=== PATIENT | female | born 1970 | race Caucasian/White ===

== ENCOUNTER 2024-10-27 08:30 | Inpatient (IN) | payer OTHER ==
[~2024-10-27] VITALS: Ht 157.5 cm; Wt 58.1 kg
[2024-10-27 08:32] VITALS: BP 108/71
[2024-10-27 08:34] VITALS: BP 110/72
[2024-10-27] MEDS ORDERED: ZETIA10 MG PO (09:12)
[2024-10-27] MEDS ORDERED: CHILDREN'S ASPI81 MG PO (09:12)
[2024-10-27] MEDS ORDERED: TRICOR145 MG PO (09:12)
[2024-10-27] MEDS ORDERED: LOSARTAN-HCTZ1 EACH PO (09:12)
[2024-10-27] MEDS ORDERED: AMBIEN10 MG PO (09:13)
[2024-10-27] MEDS ORDERED: MOBIC7.5 MG PO (09:13)
[2024-10-27] MEDS ORDERED: HORIZANT300 MG PO (09:13)
[2024-11-02] MEDS ORDERED: CEFTRIAXONE SODIUM 2,000 MG VIAL ONE (10:16)
[2024-11-02] MEDS ORDERED: METRONIDAZOLE/SODIUM CHLORIDE 500 MG/100 ML PIGGYBACK IV ONE (10:17)
[2024-11-02] MEDS ORDERED: DIBUCAINE 30 GM TUBE ONE (11:05)
[2024-11-02] MEDS ORDERED: LIDOCAINE HCL 1%/EPINEPHRINE 20ML VIAL IJ ONE (11:05)
[2024-11-02] MEDS ORDERED: POVIDONE-IODINE 118 ML BOTT TOP ONE (11:05)
[2024-11-02] MEDS ORDERED: HEMOSTATIC MATRIX 1 KIT KIT TOP ONE (11:05)
[2024-11-02] MEDS ORDERED: MORPHINE SULFATE 4 MG/ML VIAL IV ONE (13:55)
[2024-11-02] MEDS ORDERED: ENALAPRILAT DIHYDRATE 1.25 MG/ML VIAL IV PRN (14:00)
[2024-11-02] MEDS ORDERED: ONDANSETRON HCL 2 MG/ML VIAL ONE (14:01)
[2024-11-02] MEDS ORDERED: OxyCODONE HCL 5 MG TABLET (ROXICODONE) PO PRN (14:30)
[2024-11-02] MEDS ORDERED: RINGERS SOLUTION,LACTATED 1,000 ML IV SCH (14:30)
[2024-11-02] MEDS ORDERED: ONDANSETRON HCL 2 MG/ML VIAL IV PRN (14:30)
[2024-11-02] MEDS ORDERED: MORPHINE SULFATE 4 MG/ML CARTRIDGE IV PRN (14:30)
[2024-11-02 14:46] LABS: HEMATOCRIT 33.9 % (36.0-45.00); HEMOGLOBIN 11.2 g/dL (12.0-15.00); MEAN CORPUSCULAR HEMOGLOBIN 29.2 pg (27.00-32.0); MEAN CORPUSCULAR HGB CONC 33.2 g/dl (32.0-36.0); PLATELET COUNT 281 K/uL (150-450); RED BLOOD COUNT 3.85 M/uL (4.00-6.00); RED CELL DISTRIBUTION WIDTH 14.5 % (11.5-14.5)
[2024-11-02] MEDS ORDERED: HYOSCYAMINE SULFATE 0.125 MG TAB.SUBL SL SCH (17:00)
[2024-11-02] MEDS ORDERED: METOCLOPRAMIDE HCL 5 MG/ML VIAL IV SCH (17:00)
[2024-11-02] MEDS ORDERED: GABAPENTIN 300 MG CAPSULE PO SCH (17:00)
[2024-11-02] MEDS ORDERED: POLYETHYLENE GLYCOL 3350 17 GM BLIST.PACK PO SCH (17:00)
[2024-11-02 17:46] VITALS: BP 108/71; O2SAT 99
[2024-11-02] MEDS ORDERED: ACETAMINOPHEN 500 MG GEL..CAP PO SCH (20:00)
[2024-11-02] MEDS ORDERED: FAMOTIDINE/PF 20 MG/2 ML VIAL IV PUSH SCH (21:00)
[2024-11-02] MEDS ORDERED: CELECOXIB 200 MG CAPSULE PO SCH (21:00)
[2024-11-03] VITALS: BP 92/55; O2SAT 97
[2024-11-03 06:55] LABS: HEMATOCRIT 31.9 % (36.0-45.00); HEMOGLOBIN 10.8 g/dL (12.0-15.00); MEAN CELL VOLUME 88.5 fL (80.00-100.00); MEAN CORPUSCULAR HEMOGLOBIN 30.1 pg (27.00-32.0); PLATELET COUNT 255 K/uL (150-450); RED CELL DISTRIBUTION WIDTH 14.6 % (11.5-14.5)
[2024-11-03 07:36] LABS: ALBUMIN 3.1 gm/dL (3.4-5.0); CALCIUM 10.1 mg/dL (8.5-10.1); CREATININE SERUM 0.58 mg/dL (0.55-1.02); GFR 108.33; MAGNESIUM 1.6 mg/dL (1.8-2.4); POTASSIUM 3.74 mEq/L (3.5-5.1)
[2024-11-03] MEDS ORDERED: LACTOBACILLUS ACIDOPHILUS 1 CAP CAP PO SCH (09:00)
[2024-11-03] MEDS ORDERED: LOSARTAN/HYDROCHLOROTHIAZIDE 1 UDTAB TABLET PO SCH (09:00)
[2024-11-03 13:00] VITALS: BP 121/58
[2024-11-03 13:56] VITALS: BP 92/52; O2SAT 99
[2024-11-03] MEDS ORDERED: INTESTINEX680 M1 PO (15:07)
[2024-11-03] MEDS ORDERED: NEURONTIN300 MG PO (15:07)
[2024-11-03] MEDS ORDERED: CELECOXIB200 MG PO (15:07)
[2024-11-03] MEDS ORDERED: CLARITIN10 MG PO (15:08)
[2024-11-03] MEDS ORDERED: HYDROCORTISONE SODIUM SUCC/PF 100 MG VIAL IM NR (16:00)
[2024-11-03 16:09] VITALS: BP 127/61; O2SAT 99
[2024-11-03] MEDS ORDERED: ENOXAPARIN SODIUM 40 MG/0.4 ML SYRINGE SUBCUTANEO SCH (17:00)
[2024-11-04] MEDS ORDERED: ENOXAPARIN SODIUM 40 MG/0.4 ML SYRINGE SUBCUTANEO SCH (09:00)
== END 2024-11-03 19:00 | disposition home or self-care (01) | DRG 748 ==
LOC: SURH 11-02 07:00 → O/R 11-02 07:57 → SURH 11-02 11:32
PROVIDERS: ADMIT Surgery; ATTEND Surgery
PROC: 3E0T3BZ Introduction of Anesthetic Agent into Peripheral Nerves and Plexi, Percutaneous Approach (ICD-10-PCS; 2024-11-02)
PROC: 0JQC0ZZ Repair Pelvic Region Subcutaneous Tissue and Fascia, Open Approach (ICD-10-PCS; principal; 2024-11-02 07:00)
DX: N81.6 Rectocele (principal); K59.01 Slow transit constipation; K59.02 Outlet dysfunction constipation; Z20.822 Contact with and (suspected) exposure to COVID-19

== ENCOUNTER 2024-12-28 07:13 | Inpatient (IN) | payer OTHER ==
[~2024-12-28] VITALS: Ht 157.5 cm; Wt 55.3 kg
[~2024-12-28 07:13] MED LIST: AMBIEN10 MG PO; CEFTRIAXONE SODIUM 2,000 MG in 0.9 % SODIUM CHLORIDE 50 ML IV ONE; CELECOXIB200 MG PO; CHILDREN'S ASPI81 MG PO; CLARITIN10 MG PO; HORIZANT300 MG PO; INTESTINEX680 M1 PO; LOSARTAN-HCTZ1 EACH PO; METRONIDAZOLE/SODIUM CHLORIDE 200 ML IV NR; MOBIC7.5 MG PO; NEURONTIN300 MG PO; TRICOR145 MG PO; ZETIA10 MG PO
[2024-12-28 08:35] LABS: HEMATOCRIT 33.7 % (36.0-45.00); HEMOGLOBIN 11.5 g/dL (12.0-15.00); MEAN CORPUSCULAR HGB CONC 34.1 g/dl (32.0-36.0); PLATELET COUNT 304 K/uL (150-450); RED BLOOD COUNT 3.83 M/uL (4.00-6.00); RED CELL DISTRIBUTION WIDTH 14.9 % (11.5-14.5)
[2024-12-28 08:59] LABS: INR 1.01
[2024-12-28 09:04] LABS: CALCIUM 10.3 mg/dL (8.5-10.1); CREATININE SERUM 0.63 mg/dL (0.55-1.02); GFR 98.47; POTASSIUM 3.53 mEq/L (3.5-5.1)
[2024-12-28] MEDS ORDERED: POVIDONE-IODINE 118 ML BOTT TOP NR (12:45)
[2024-12-28] MEDS ORDERED: CEFTRIAXONE SODIUM 2,000 MG VIAL IV NR (12:45)
[2024-12-28] MEDS ORDERED: LIDOCAINE HCL 1%/EPINEPHRINE 20ML VIAL IJ NR (12:45)
[2024-12-28] MEDS ORDERED: BUPIVACAINE HCL 30 ML VIAL IJ NR (12:45)
[2024-12-28] MEDS ORDERED: OxyCODONE HCL 5 MG TABLET (ROXICODONE) PO PRN (14:15)
[2024-12-28] MEDS ORDERED: ONDANSETRON HCL 2 MG/ML VIAL IV PRN (14:15)
[2024-12-28] MEDS ORDERED: RINGERS SOLUTION,LACTATED 1,000 ML IV SCH (14:15)
[2024-12-28] MEDS ORDERED: MORPHINE SULFATE 4 MG/ML CARTRIDGE IV PRN (14:15)
[2024-12-28] MEDS ORDERED: MORPHINE SULFATE 4 MG/ML VIAL IV ONE (17:00)
[2024-12-28] MEDS ORDERED: POLYETHYLENE GLYCOL 3350 17 GM BLIST.PACK PO SCH (17:00)
[2024-12-28] MEDS ORDERED: METOCLOPRAMIDE HCL 5 MG/ML VIAL IV SCH (17:00)
[2024-12-28] MEDS ORDERED: HYOSCYAMINE SULFATE 0.125 MG TAB.SUBL SL SCH (17:00)
[2024-12-28] MEDS ORDERED: METRONIDAZOLE/SODIUM CHLORIDE 100 ML IV SCH (17:00)
[2024-12-28] MEDS ORDERED: GABAPENTIN 300 MG CAPSULE PO SCH (17:00)
[2024-12-28 17:40] VITALS: BP 105/52; O2SAT 98
[2024-12-28] MEDS ORDERED: ACETAMINOPHEN 500 MG GEL..CAP PO SCH (20:00)
[2024-12-28] MEDS ORDERED: FAMOTIDINE/PF 20 MG/2 ML VIAL IV PUSH SCH (21:00)
[2024-12-28] MEDS ORDERED: CIPROFLOXACIN IN 5 % DEXTROSE 200 MG/100 ML PIGGYBAG IV SCH (21:00)
[2024-12-29 00:23] VITALS: BP 94/54; O2SAT 95
[2024-12-29 06:48] LABS: HEMATOCRIT 32.9 % (36.0-45.00); HEMOGLOBIN 11.2 g/dL (12.0-15.00); MEAN CELL VOLUME 87.3 fL (80.00-100.00); MEAN CORPUSCULAR HEMOGLOBIN 29.8 pg (27.00-32.0); MEAN CORPUSCULAR HGB CONC 34.2 g/dl (32.0-36.0); PLATELET COUNT 225 K/uL (150-450); RED BLOOD COUNT 3.77 M/uL (4.00-6.00); RED CELL DISTRIBUTION WIDTH 14.9 % (11.5-14.5)
[2024-12-29 07:42] LABS: ALBUMIN 2.8 gm/dL (3.4-5.0); CALCIUM 9.6 mg/dL (8.5-10.1); CREATININE SERUM 0.53 mg/dL (0.55-1.02); GFR 120.21; PHOSPHOROUS 3.3 mg/dL (2.5-4.9); POTASSIUM 3.81 mEq/L (3.5-5.1)
[2024-12-29 08:00] VITALS: BP 119/70; O2SAT 98
[2024-12-29] MEDS ORDERED: LACTOBACILLUS ACIDOPHILUS 1 CAP CAP PO SCH (09:00)
[2024-12-29 12:00] VITALS: BP 115/76; O2SAT 100
[2024-12-29 15:20] VITALS: BP 137/82; O2SAT 97
[2024-12-29] MEDS ORDERED: CIPROFLOXACIN IN 5 % DEXTROSE 400 MG/200 ML PIGGYBAG IV SCH (21:00)
[2024-12-30 01:25] VITALS: BP 109/55; O2SAT 98
[2024-12-30 08:00] VITALS: BP 127/82; O2SAT 99
[2024-12-30] MEDS ORDERED: MAGNESIUM HYDROXIDE 30 ML BLIST.PACK PO NR (09:00)
[2024-12-30 16:00] VITALS: BP 111/73; O2SAT 98
[2024-12-31 00:31] VITALS: BP 144/82; O2SAT 98
[2024-12-31] MEDS ORDERED: CIPRO500 MG PO (11:22)
[2024-12-31] MEDS ORDERED: METRONIDAZOLE500 MG PO (11:22)
[2024-12-31] MEDS ORDERED: INTESTINEX680 M1 PO (11:23)
== END 2024-12-31 13:45 | disposition home or self-care (01) | DRG 394 ==
LOC: ER 07:16 → SURG 08:24
PROVIDERS: ADMIT Surgery; ATTEND Surgery
PROC: 0JQC3ZZ Repair Pelvic Region Subcutaneous Tissue and Fascia, Percutaneous Approach (ICD-10-PCS; 2024-12-28)
PROC: 3E0T3BZ Introduction of Anesthetic Agent into Peripheral Nerves and Plexi, Percutaneous Approach (ICD-10-PCS; principal; 2024-12-28 13:00)
DX: K62.89 Other specified diseases of anus and rectum (principal); K62.5 Hemorrhage of anus and rectum; N81.6 Rectocele